=== PATIENT | male | born 1985 | race Caucasian/White ===

== ENCOUNTER 2017-09-29 07:37 | Emergency (ER) | END 2017-09-29 11:26 | disposition home or self-care (01) ==

== ENCOUNTER 2018-03-21 15:43 | Emergency (ER) | END 2018-03-21 18:01 | disposition home or self-care (01) ==

== ENCOUNTER 2018-07-09 15:39 | Emergency (ER) | payer SELFPAY ==
[~2018-07-09] VITALS: Ht 167.6 cm; Wt 98.7 kg
[~2018-07-09 15:39] MED LIST: ACET1TAB40 PO; HYDR-4011 PO; IBUP800T48 PO; ONDA8TAB14 PO; TAMS-14 PO
[2018-07-09 15:59] VITALS: BP 152/102; PULSE 80; RESP 20; Ht 167.6 cm; Wt 98.7 kg
[2018-07-10] MEDS ORDERED: MINE3.5O30 LEFT EYE (13:30)
[2018-07-10] MEDS ORDERED: PRED20TA PO (13:30)
[2018-07-10] MEDS ORDERED: ACYC800T5 PO (13:30)
== END 2018-07-09 21:53 | disposition left against medical advice (07) ==
LOC: FTE 15:39
DX: Z53.21 Procedure and treatment not carried out due to patient leaving prior to being seen by health care provider (principal)

== ENCOUNTER 2018-07-10 10:59 | Emergency (ER) | payer SELFPAY ==
[~2018-07-10] VITALS: Ht 175.3 cm; Wt 97.0 kg
[2018-07-10 11:06] VITALS: BP 147/79; PULSE 95; RESP 18; Ht 175.3 cm; Wt 97.0 kg
--- NOTE | 2018-07-10 12:10 | ERD ---
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 Symptoms are constant and worsening. Associated symptoms include decreased taste and decreased hearing on the left side. Additionally, the patient reports having intermittent headache for the past 2 months. Patient has tried no medication for relief of symptoms. He denies any head trauma. He denies any other symptoms at this time. ROS All systems reviewed and are negative except as per history of present illness. Medications Home Meds Active Scripts Mineral Oil/Petrolatum,White (ARTIFICIAL TEARS EYE OINT) 3.5 Gm Oint...g., 1 APPLIC LEFT EYE NEEDED PRN for DRY EYES, #1 EA Prov:CARLOS RODRIGUEZ PA-C 07/10/18 Prednisone* (Prednisone*) 20 Mg Tab, 40 MG PO DAILY for 4 Days, TAB Prov:CARLOS RODRIGUEZ PA-C 07/10/18 Acyclovir* (Zovirax*) 800 Mg Tablet, 800 MG PO 5 TIMES DAILY for 7 Days, TAB Prov:CARLOS RODRIGUEZ PA-C 07/10/18 Ibuprofen* (Motrin*) 800 Mg Tab, 800 MG PO Q6H PRN for PAIN AND OR ELEVATED TE MP, #30 TAB Prov:GEORGE MULLINS 03/21/18 Acetaminophen with Codeine (Acetaminophen-Cod #3 Tablet) 1 Each Tablet, 1 TAB PO Q6H PRN for SEVERE PAIN LEVEL 7-10, #20 TAB Prov:GEORGE MULLINS 03/21/18 Hydrocodone/Acetaminophen ([place] 5-325 Tablet) 1 Each Tablet, 1 TAB PO Q6H PRN for PAIN, #12 TAB Prov:KADEN SOLIS MD 09/29/17 Ondansetron (Ondansetron Odt) 8 Mg Tab.rapdis, 8 MG PO Q6H PRN for NAUSEA AND/OR VOMITING, #10 TAB Prov:KADEN SOLIS MD 09/29/17 Tamsulosin Hcl* (Flomax*) 0.4 Mg Cap.er.24h, 0.4 MG PO BID, #30 CAP Prov:KADEN SOLIS MD 09/29/17 Reported Medications [None] No Conflict Check 08/08/09 Allergies Allergies: Coded Allergies: No Known Allergies (Verified Allergy, Mild, 03/21/18) PMhx/Soc History of Surgery: No Hx Neurological Disorder: No Hx Respiratory Disorders: No Hx Cardiac Disorders: No Hx Miscellaneous Medical Probl: Yes (MIGRAINE,TMJ) Hx Alcohol Use: Yes (SOCIALLY) Hx Substance Use: No Hx Tobacco Use: No FmHx Family History: No diabetes Physical Exam Vitals Vital Signs Date Temp Pulse Resp B/P (MAP) Pulse Ox O2 O2 Flow FiO2 Time Delivery Rate 07/10/18 98.1 95 18 147/79 98 11:06 (101) Physical Exam Const: No acute distress Head: Atraumatic Eyes: Normal Conjunctiva ENT: Normal External Ears, Nose and Mouth. Neck: Full range of motion. No meningismus. Resp: Clear to auscultation bilaterally Cardio: Regular rate and rhythm, no murmurs Skin: No petechiae or rashes Back: No midline or flank tenderness Ext: No cyanosis, or edema Neuro: Left-sided facial droop. M/S: Alert and oriented Face: EOMI, face and pharynx with normal sensation Motor: Normal strength throughout Sensation: Normal sensation throughout Speech: Normal Cerebel: Normal coordination Normal gait Normal finger to nose DTR: 2+ and symmetric upper/lower extremities Psych: Normal Mood and Affect Results 24 hrs [place] [id number] Radiology Main Line: [phone] DIAGNOSTIC IMAGING REPORT Patient: CAMRYN MILAN : 1985 Age: 33 Sex: M MR #: [id number] DOS: 07/10/18 0000 Ordering MD: CARLOS RODRIGUEZ PA-C Location: [facility] Room/Bed: PROCEDURE: CT Brain without contrast. CLINICAL INDICATION: Headache. TECHNIQUE: A CT of the brain without contrast was performed utilizing axial sections from the skull base through the vertex. One or more the following does reduction techniques were utilized: Automated exposure control, adjustment of the mA/ or kV according to patient's size, or use of iterative reconstruction technique. Total exam CTDIvol is 39 MGy and DLP is 634 mGy-cm. DICOM images are available. COMPARISON: None available. FINDINGS: The ventricles and sulci are age-appropriate. There is no intracranial hemorrhage, mass effect or midline shift. No abnormal intra-axial or extra- axial fluid collections are seen. The george/white matter differentiation is preserved. No acute skull abnormality is noted. The visualized paranasal sinuses are essentially clear. IMPRESSION: 1. No acute intracranial hemorrhage, transcortical infarction or mass effect. RPTAT: HH .Jen Gutierrez MD, Date Time Electronically viewed and signed by .Jen Gutierrez MD, on 07/10/2018 13:06 .N/ CC: CARLOS RODRIGUEZ PA-C [id number] Procedures/MDM 33-year-old male presenting to the emergency department with signs and symptoms most consistent with Goel's palsy. Due to the patient's history of intermittent headache for the past 2 months, I did obtain a CT scan of the head to rule out intracranial mass or other abnormalities. CT head without contrast was negative. Patient was improved in the department. Diagnosis most likely Goel's palsy. Much lower suspicion for CVA, TIA, intra-cranial hemorrhage, intracranial mass, or other emergencies. Patient stable and appropriate for dis charge and further treatment as an outpatient. The patient agreed with the diagnosis, plan, need for follow-up, return precautions. I did discuss this patient's case with attending ED physician, Dr. Lokesh Pérez, who was in agreement with assessment and plan and need for follow-up. Patient's blood pressure was elevated (>120/80) but appears stable without evidence of hypertension emergency or urgency. The patient is to follow-up and pursue outpatient monitoring and therapy with their primary care physician within 1 week and return immediately if they have any new, worsening, or concerning symptoms. Departure Diagnosis: Primary Impression: Goel's palsy Condition: Fair CARLOS RODRIGUEZ PA-C Jul 10, 2018 12:10
[2018-07-10] MEDS ORDERED: PRED20TA PO (13:30)
[2018-07-10] MEDS ORDERED: MINE3.5O30 LEFT EYE (13:30)
[2018-07-10] MEDS ORDERED: ACYC800T5 PO (13:30)
== END 2018-07-10 13:54 | disposition home or self-care (01) ==
LOC: FTE 10:59
DX: G51.0 Bell's palsy (principal)
CPT/HCPCS: 70450

== ENCOUNTER 2018-09-07 11:54 | Emergency (ER) | payer OTHER ==
[~2018-09-07] VITALS: Ht 162.6 cm; Wt 100.4 kg
[~2018-09-07 11:54] MED LIST changes: +ACYC800T5 PO; +MINE3.5O30 LEFT EYE; +PRED20TA PO
[2018-09-07 11:56] VITALS: BP 142/86; PULSE 92; RESP 19; Ht 162.6 cm; Wt 100.4 kg
[2018-09-07] MEDS ORDERED: SOD CHLORIDE 0.9% 100 ML ONE (14:18)
[2018-09-07] MEDS ORDERED: IOHEXOL 300MG/ML 150 ML BTL ONE (14:18)
--- NOTE | 2018-09-07 15:14 | ERD ---
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 States that he also had an ear infection in his left ear 1 month ago for which he was treated with antibiotics but he is still experiencing pain. He received a CT when he was diagnosed with Goel palsy 2 months ago on the results within normal limits. Denies any focal numbness or weakness. Denies any fevers, headaches, chills, hearing loss. ROS All systems reviewed and are negative except as per history of present illness. Medications Home Meds Active Scripts Neomycin/Polymyxin/Hydrocort* (Cortisporin* Otic) 10 Ml Susp, 4 DROP LEFT EAR QID for otitis externa for 7 Days, EA Prov:CARLOS ALEXANDRA 09/07/18 Amoxicillin/Potassium Clav (Amox-Clav 875-125 mg Tablet) 875-125 mg Tab, 1 TAB PO BID for parotitis for 10 Days, #20 TAB Prov:CARLOS ALEXANDRA 09/07/18 Mineral Oil/Petrolatum,White (ARTIFICIAL TEARS EYE OINT) 3.5 Gm Oint...g., 1 APPLIC LEFT EYE NEEDED PRN for DRY EYES, #1 EA Prov:CARLOS RODRIGUEZ PA-C 07/10/18 Prednisone* (Prednisone*) 20 Mg Tab, 40 MG PO DAILY for 4 Days, TAB Prov:CARLOS RODRIGUEZ PA-C 07/10/18 Acyclovir* (Zovirax*) 800 Mg Tablet, 800 MG PO 5 TIMES DAILY for 7 Days, TAB Prov:CARLOS RODRIGUEZ PA-C 07/10/18 Ibuprofen* (Motrin*) 800 Mg Tab, 800 MG PO Q6H PRN for PAIN AND OR ELEVATED TEMP, #30 TAB Prov:GEORGE MULLINS 03/21/18 Acetaminophen with Codeine (Acetaminophen-Cod #3 Tablet) 1 Each Tablet, 1 TAB PO Q6H PRN for SEVERE PAIN LEVEL 7-10, #20 TAB Prov:GEORGE MULLINS F 03/21/18 Hydrocodone/Acetaminophen ([place] 5-325 Tablet) 1 Each Tablet, 1 TAB PO Q6H PRN for PAIN, #12 TAB Prov:KADEN SOLIS MD 09/29/17 Ondansetron (Ondansetron Odt) 8 Mg Tab.rapdis, 8 MG PO Q6H PRN for NAUSEA AND/OR VOMITING, #10 TAB Prov:KADEN SOLIS MD 09/29/17 Tamsulosin Hcl* (Flomax*) 0.4 Mg Cap.er.24h, 0.4 MG PO BID, #30 CAP Prov:KADEN SOLIS MD 09/29/17 Reported Medications [None] No Conflict Check 08/08/09 Allergies Allergies: Coded Allergies: No Known Allergies (Verified Allergy, Mild, 03/21/18) PMhx/Soc History of Surgery: No Hx Neurological Disorder: No Hx Respiratory Disorders: No Hx Cardiac Disorders: No Hx Miscellaneous Medical Probl: Yes (MIGRAINE,TMJ) Hx Alcohol Use: Yes (SOCIALLY) Hx Substance Use: No Hx Tobacco Use: No FmHx Family History: No diabetes, No coronary disease, No other Physical Exam Vitals Vital Signs Date Temp Pulse Resp B/P (MAP) Pulse Ox O2 O2 Flow FiO2 Time Delivery Rate 09/07/18 92 19 142/86 97 11:56 (104) Physical Exam Const: No acute distress Head: Atraumatic Eyes: Normal Conjunctiva ENT: Normal External Ears, Nose and Mouth. TMs are pearly george without e rythema or exudates bilaterally. Canals are patent. Possible mild edema noted to left ear canal with no exudates or erythema. No mastoid tenderness to palpation, edema, or erythema bilaterally. Neck: Full range of motion. No meningismus. There is some swelling noted to the left parotid area with mild tenderness to palpation. There is no erythema noted. Overlying skin is intact without lesions. Resp: Clear to auscultation bilaterally Cardio: Regular rate and rhythm, no murmurs Abd: Soft, non tender, non distended. Normal bowel sounds Skin: No petechiae or rashes Back: No midline or flank tenderness Ext: No cyanosis, or edema Neur: Awake and alert Psych: Normal Mood and Affect Result Diagram: 09/07/18 1230 09/07/18 1230 Results 24 hrs Laboratory Tests Test 09/07/18 12:30 White Blood Count 8.8 10^3/ul Red Blood Count 5.11 10^6/ul Hemoglobin 16.2 g/dl Hematocrit 46.0 % Mean Corpuscular Volume 90.0 fl Mean Corpuscular Hemoglobin 31.7 pg Mean Corpuscular Hemoglobin Concent 35.2 g/dl Red Cell Distribution Width 11.9 % Platelet Count 177 10^3/UL Mean Platelet Volume 10.7 fl Immature Granulocytes % 1.300 % Neutrophils % 61.4 % Lymphocytes % 24.3 % Monocytes % 11.4 % Eosinophils % 1.1 % Basophils % 0.5 % Nucleated Red Blood Cells % 0.0 /100WBC Immature Granulocytes # 0.110 10^3/ul Neutrophils # 5.4 10^3/ul Lymphocytes # 2.1 10^3/ul Monocytes # 1.0 10^3/ul Eosinophils # 0.1 10^3/ul Basophils # 0.0 10^3/ul Nucleated Red Blood Cells # 0.0 10^3/ul Sodium Level 141 mmol/L Potassium Level 4.1 mmol/L Chloride Level 109 mmol/L Carbon Dioxide Level 26 mmol/L Anion Gap 6 Blood Urea Nitrogen 17 mg/dl Creatinine 0.89 mg/dl Est Glomerular Filtrat Rate mL/min > 60 mL/min Glucose Level 149 mg/dl Calcium Level 9.1 mg/dl Total Bilirubin 0.5 mg/dl Direct Bilirubin 0.00 mg/dl Indirect Bilirubin 0.5 mg/dl Aspartate Amino Transf (AST/SGOT) 32 IU/L Alanine Aminotransferase (ALT/SGPT) 63 IU/L Alkaline Phosphatase 167 IU/L Total Protein 7.3 g/dl Albumin 4.0 g/dl Globulin 3.30 g/dl Albumin/Globulin Ratio 1.21 Current Medications Medications Dose Sig/Leyla Start Time Status Last (Trade) Ordered Route PRN Stop Time Admin Dose Reason Admin IV Flush 10 ml STK-MED 09/07/18 DC (NS 10 ml) ONCE .ROUTE 14:18 09/07/18 14:19 Sodium 100 ml @ ud STK-MED 09/07/18 DC Chloride ONCE .ROUTE 14:18 09/07/18 14:19 Iohexol 150 ml STK-MED 09/07/18 DC (Omnipaque ONCE .ROUTE 14:18 300mg/ ml) 09/07/18 14:19 Procedures/MDM DIAGNOSTIC IMAGING REPORT Patient: CAMRYN MILAN : 1985 Age: 33 Sex: M MR #: [id number] DOS: 09/07/18 1215 Ordering MD: CARLOS ALEXANDRA Location: [facility] Room/Bed: PROCEDURE: CT facial bones with contrast CLINICAL INDICATION: Swelling in the left parotid region TECHNIQUE: A CT of the facial bones was performed on a GE 64-slice CT scanner utilizing high-resolution axial images. Sagittal, coronal, and multiplanar reformatted images were made. Additionally, 3-D reformatted images were made. 90 cc of Isovue 300 contrast was injected intravenously. The CTDIvol is 53.65 mGy and the DLP is 1083.18 mGycm. One or more the following dose reduction techniques were utilized: Automated exposure control, adjustment of the mA/ or kV according to patient's size, or use of iterative reconstruction technique. DICOM images are available for review. COMPARISON: CT brain 07/10/2018 FINDINGS: Images the facial soft tissues demonstrate other may be mild asymmetry of the parotid glands, left greater than right neural evidence of intraparotid masses or evidence of surrounding swelling or subcutaneous edema. The visualized nasopharynx, oropharynx, hypopharynx and larynx are unremarkable. The subman dibular glands are symmetric in appearance. The orbits, as visualized, appear intact. The overlying soft tissues are grossly unremarkable. There are scattered lymph nodes in normal lymph node bearing regions, none of which reach significant size criteria. The visualized paranasal sinuses and mastoid air cells are clear. IMPRESSION: Contrast-enhanced CT of the face demonstrates no acute pathology. There is mild asymmetry of the parotid glands with left slightly larger than the right however no inflammatory changes or intraparotid masses are visualized. RPTAT: [facility] Physician Hetal Date Time Electronically viewed and signed by Physician Hetal on 09/07/2018 15:26 RL/ CC: CARLOS ALEXANDRA [id number] MDM: Patient's neuro exam was within normal limits. There was a little bit of swelling noted to the parotid area on exam, this combined with patient's recent diagnosis of otitis media raise concern for possible infection. Therefore, CT with contrast facial bones is ordered. Results did show some asymmetry of the parotid glands but did not show any signs of infection. Patient was treated for parotitis with Augmentin. In addition, there was some indication of otitis externa found on exam the patient was given Rx for Cortisporin. Low suspicion for acute space infection, CVA, abscess, malignant otitis externa, mastoiditis, or any other emergent condition. Patient discharged with strict ER precautions. Patient advised to follow up with PMD. All questions answered at discharge. Departure Diagnosis: Primary Impression: Otitis externa Otitis externa type: unspecified type Chronicity: acute Laterality: left Qualified Codes: H60.502 - Unspecified acute noninfective otitis externa, left ear Additional Impression: Parotitis Condition: Stable CARLOS ALEXANDRA September 07, 2018 15:14
[2018-09-07] MEDS ORDERED: NPH10OT LEFT EAR (15:48)
[2018-09-07] MEDS ORDERED: AMOX1TAB10 PO (15:48)
== END 2018-09-07 16:45 | disposition home or self-care (01) ==
LOC: FTE 11:54
DX: H60.502 Unspecified acute noninfective otitis externa, left ear (principal); K11.20 Sialoadenitis, unspecified
CPT/HCPCS: 70486; 80053; 85025; Q9967; Z7502; Z7610

== ENCOUNTER 2018-12-20 09:10 | Emergency (ER) | payer OTHER ==
[~2018-12-20] VITALS: Ht 160 cm; Wt 89.0 kg
[~2018-12-20 09:10] MED LIST changes: +AMOX1TAB10 PO; +IBUP-1542 PO; +NPH10OT LEFT EAR
[2018-12-20 09:13] VITALS: BP 156/79; PULSE 80; RESP 18; Ht 160 cm; Wt 89.0 kg
[2018-12-20] MEDS ORDERED: KETOROLAC 30 MG INJ IM STA (09:32)
== END 2018-12-20 10:31 | disposition home or self-care (01) ==
LOC: FTE 09:10
DX: M79.671 Pain in right foot (principal)
CPT/HCPCS: 73630; 96372; J1885; Z7502

== ENCOUNTER 2019-01-06 06:37 | Emergency (ER) | payer OTHER ==
[~2019-01-06] VITALS: Ht 162.6 cm; Wt 98.3 kg
[2019-01-06 06:44] VITALS: Ht 162.6 cm; Wt 98.3 kg
[2019-01-06] MEDS ORDERED: ASPIRIN 325 MG TAB PO STA (07:20)
[2019-01-06] MEDS ORDERED: HALOPERIDOL 5 MG TAB PO ONE (08:00)
[2019-01-06 08:42] VITALS: BP 125/83; PULSE 78; RESP 19
== END 2019-01-06 08:43 | disposition home or self-care (01) ==
LOC: E/R 06:37
DX: R07.89 Other chest pain (principal)
CPT/HCPCS: 36415; 71045; 80048; 84484; 85025; 93005; Z7502; Z7610